=== PATIENT | male | born 1960 | race Hispanic/Latino ===

== ENCOUNTER 2017-04-19 11:39 | Inpatient (IN) | payer OTHER ==
[~2017-04-19 11:39] MED LIST: ISOVUE-370 76%-LOCM 1 ML ONE
[2017-04-19] MEDS ORDERED: Adacel (T-DAP) 0.5 ML VIAL ONE (11:52)
[2017-04-19 11:59] LABS: #Basophils 0.1 thou/uL (0.0-0.2); #Eosinphils 0.4 thou/uL (0.0-0.7); #Lymphocytes 3.7 thou/uL (1.20-3.40); #Monocytes 0.7 thou/uL (0.11-0.59); #Neutrophils 4.4 thou/uL (1.40-6.50); %Basophils 0.6 % (0.0-1.0); %Eosinophils 3.8 % (0.0-10.0); %Lymphocytes 40.2 % (21.0-51.0); %Monocytes 7.9 % (0.0-10.0); %Neutrophils 47.4 % (42.0-75.0); Hemoglobin 15.2 g/dL (14.0-18.0); Mean Corpuscular HGB CONC 34.9 g/dL (32.0-36.0); Mean Corpuscular Hemoglobin 31.9 pg (27.0-31.0); Mean Corpuscular Volume 91.2 fl (80.0-94.0); Mean Platelet Volume 8.5 fL (7.4-10.4); Platelet Count 171 thou/uL (130-400); RBC Distribution Width 12.6 % (11.5-14.5); Red Blood Cell (RBC) Count 4.76 mill/uL (4.70-6.10); White Blood Cell (WBC) Count 9.3 thou/uL (4.8-10.8)
[2017-04-19 12:09] LABS: Prothrombin Time 13.5 SEC (12.0-14.7)
[2017-04-19 12:15] LABS: ALT (SGPT) 42 U/L (8-55); AST (SGOT) 37 U/L (5-34); Alkaline Phosphatase 78 U/L (40-150); Anion Gap 14 mmol/L (10-20); BUN (Urea Nitrogen) 23 mg/dL (8.4-25.7); Bilirubin, Total 0.9 mg/dL (0.2-1.2); Calc. Creatinine Clearance 0 mL/min (70-130); Calcium 9.1 mg/dL (7.8-10.44); Carbon Dioxide 22 mmol/L (22-29); Chloride 107 mmol/L (98-107); Estimated GFR-MDRD 60; Globulin 2.8 g/dL (2.4-3.5); Glucose 165 mg/dL (70-105); Lipase 48 U/L (8-78); Potassium 3.7 mmol/L (3.5-5.1); Protein, Total 6.8 g/dL (6.0-8.3); Sodium 139 mmol/L (136-145)
--- NOTE | 2017-04-19 12:16 | CT ---
NONCONTRAST HEAD CT: Date: 04/19/17 HISTORY: Level I trauma. Slip and fall from back of concrete truck. Patient fell approximately 15-20 ft. Post- traumatic pain. Low back pain. Bilateral lower leg paralysis and loss of sensation. COMPARISON: None. TECHNIQUE: A noncontrast head CT is performed from the skull base to the skull vertex. FINDINGS: There is a probable arachnoid cyst in the left middle cranial fossa. No midline shift. Basilar cister ns are patent. Brain volume is age-appropriate. Cortical butler-white matter differentiation is preserv ed. Ventricles and sulci are patent and symmetric. Adequate aeration of the sinuses and mastoid air c ells. Calvarium is intact. IMPRESSION: No intracranial post-traumatic sequelae. POS: [facility]
--- NOTE | 2017-04-19 12:19 | CT ---
CERVICAL SPINE CT: Date: 04/19/17 COMPARISON: None. HISTORY: Fall, trauma, pain. TECHNIQUE: Serial axial CT imaging at 2.5 mm intervals from skull base through lung apices without contrast. Cor onal and sagittal reformatted imaging obtained. FINDINGS: The dens is intact. Occipital condyles appear grossly unremarkable. C1-2 articulation appears normal. There is no widening of the atlantoaxial interspace. The craniocervical junction and the cervicothora cic junction appears intact. There is no prevertebral soft tissue swelling. There is no acute fracture or evidence of dislocation seen. The imaged lung apices appear unremarkabl e. There are scattered mild osteoarthritic changes involving bilateral facet and uncovertebral joints . IMPRESSION: No fracture or evidence of dislocation. Results called to Dr. Mercer at 1209 hours on 04/19/17. CODE CR. POS: [facility]
[2017-04-19] MEDS ORDERED: Lidocaine 1% w/Epinephrine 1:100K 20 ML VIAL ONE (12:30)
[2017-04-19] MEDS ORDERED: Bupivacaine 0.5% 10 ML VIAL ONE (12:34)
[2017-04-19] MEDS ORDERED: Thrombin 5000 UNITS/5 ML VIAL ONE ×2 (12:34→17:23)
[2017-04-19] MEDS ORDERED: Sodium Chloride 0.9% 30 ML ONE (12:34)
[2017-04-19] MEDS ORDERED: Albumin 5% 500 ML ONE (12:40)
[2017-04-19] MEDS ORDERED: Famotidine/PF 20 mg/2ml Vial ONE (12:40)
[2017-04-19] MEDS ORDERED: PHENYLEPHRINE-NS 100 MCG/ML 10 ML SYRINGE ONE ×2 (12:44→14:26)
[2017-04-19] MEDS ORDERED: Phenylephrine HCL 10 MG/ML VIAL ONE ×2 (12:45→17:16)
[2017-04-19] MEDS ORDERED: HYDROcodone/Acetaminophen 10/325 mg Tablet PO PRN ×2 (12:51)
[2017-04-19] MEDS ORDERED: Ondansetron HCl/PF 4 MG/2 ML Vial IVP PRN ×2 (12:51→23:14)
[2017-04-19] MEDS ORDERED: Dextrose 50% Abboject 50 ML SYRINGE SLOW IVP PRN (12:51)
[2017-04-19] MEDS ORDERED: Dextrose 5% in Water 1,000 ML IV PRN (12:51)
[2017-04-19] MEDS ORDERED: hydrALAZINE 20 MG/ML VIAL SLOW IVP PRN (12:51)
[2017-04-19] MEDS ORDERED: CEFAZOLIN 2 GM in Sodium Chloride 0.9% 100 ML IVPB ONE (13:00)
[2017-04-19] MEDS ORDERED: CEFAZOLIN/Water 2 GM/20 ML SYRINGE SLOW IVP SCH (13:00)
[2017-04-19] MEDS ORDERED: Fentanyl 100 MCG/2 ML VIAL ONE ×5 (13:00→22:15)
--- NOTE | 2017-04-19 13:04 | CT ---
CT CHEST AND ABDOMEN AND PELVIS AND THORACIC SPINE AND LUMBAR SPINE: 04/19/2017 HISTORY: Fall. Trauma. Pain. Bilateral lower extremity paralysis and decreased rectal tone. COMPARISON: None. TECHNIQUE: Serial axial CT imaging at 5 mm intervals, from the thoracic inlet through the pubic symphysis, with IV contrast. Coronal and sagittal reformatted imaging of chest, abdomen, pelvis, thoracic spine, and lumbar spine obtained. FINDINGS: CHEST: No axillary, mediastinal, or hilar lymphadenopathy. No significant pleural, pericardial, or mediastinal fluid. No pneumothorax on either side. There is mild increased linear density in the inferior-posterior aspect of the bilateral lower lobes, suggesting atelectatic change. The extraspinal osseous structures of the chest demonstrate a comminuted and mildly displaced fractur e involving the inferior and lateral aspect of the body of the right scapula. Bilateral clavicles ap pear intact. No evidence for a scapular fracture is seen on the left, and neither shoulder is disloc ated. The manubrium and the sternum appear intact. No evidence for a rib fracture is noted on either side. THORACIC SPINE: There is a markedly comminuted fracture involving the T12 vertebral body, with fract ure lines involving the superior and inferior endplate, as well as the anterior and posterior cortex. There is osseous retropulsion into the central canal with severe associated central canal stenosis at the T12 level. The right pars interarticularis of T12 demonstrates a distracted fracture. Commin uted fractures are seen involving the transverse process of T12 bilaterally. There is a unilateral f acet dislocation on the left involving the T12-L1 level. There is adjacent paraspinal hematoma. There are fractures through the lamina of T12 bilaterally with posterior and right lateral displaceme nt of the T12 spinous process. LUMBAR SPINE: There is a comminuted fracture involving L1 with fracture lines involving the superior and inferior endplates, as well as the anterior and posterior cortex, with osseous retropulsion and associated underlying central canal stenosis. There is anteriorly displaced fracture involving the l eft L1 spinous process. Bilateral L1 lamina fractures are noted. There is a fracture involving the transverse process on the left, at L4. At the L3 level, there are fractures involving the right and left transverse processes. Bilateral transverse processes fracture s are noted at L2 as well. There is a subtle superior endplate fracture suspected at the L4 level, e xtending anteriorly, to involve the anterior cortex. ABDOMEN AND PELVIS: No free intraperitoneal air. No hepatic or splenic laceration noted. The gallbladder, the pancreas, and the left adrenal gland ar e unremarkable. The right adrenal gland and the left kidney demonstrate no acute findings. There is a punctate, nonobstructing stone in the midpole, left kidney. There is a lobulated, nonspecific, soft tissue density in the right renal fossa, measuring in the 3.9 x 1.8 cm range. No (?) normal right kidney is present. Perhaps this irregular, small soft tissue s tructure represents an atrophic kidney. A Maldonado catheter is seen within the urinary bladder. The pr ostate gland is prominent. Small bilateral fat-containing inguinal hernia is present. Limited asses sment of the bowel demonstrates diverticulosis of the descending colon and sigmoid colon. No evidenc e for bowel obstruction, bowel inflammatory change, or diverticulitis. Scattered mild atheroscleroti c calcification of the abdominal aorta. Osseous structures of the pelvis demonstrate no discrete sacral fracture. No widening of the sacroil iac joints or pubic symphysis. Neither hip is dislocated. No fracture of either inferior or superio r pubic ramus. IMPRESSION: 1. Complex, comminuted fracture involving T12 and L1 with osseous retropulsion and associated severe central canal stenosis. Please see above discussion for full extent of this instable severe, commin uted T12 and L1 fractures. There are also numerous transverse process fractures within the lumbar sp ine. 2. Right scapular fracture. 3. Incidental findings as above. The results were discussed with Dr. Mercer at 12:25 p.m. on 04/19/2017. CODE CR POS: [facility]
[2017-04-19] MEDS ORDERED: traMADol HCl 50 MG TAB PO PRN (13:09)
[2017-04-19] MEDS ORDERED: Acetaminophen 500 MG TAB PO SCH (13:15)
[2017-04-19 13:24] LABS: Magnesium 1.7 mg/dL (1.6-2.6); Phosphorus 3.2 mg/dL (2.3-4.7)
--- NOTE | 2017-04-19 14:13 | CON ---
DATE OF CONSULTATION: 04/19/2017 HISTORY OF PRESENT ILLNESS: Mr. Crum is a [id number] who presents after evaluation from a fall of 15-20 feet off a concrete truck. He leaned on his back. He has bilateral low back pain and paralysis loss of sensation to the lower extremities below the knee. He is unable to move his legs bilaterally. There was no loss of consciousness reported. EMS brought him to [facility] and he has looked back to posterior head. He has a history of diabetes , hypertension, hyperlipidemia, takes medications for them. The patient has a dull pain in nature. His symptoms are severe and rates pain 10/10. He has loss of temperature and pressure, and light touch below the knees bilaterally, but he can feel above the knees. Neurosurgery was consulted because of the CT scan that showed burst fractures at T12 and L1 that are retropulsed into the spinal canal impinging the spinal cord. REVIEW OF SYSTEMS: The patient reports back pain, reports a fall, reports paralysis, sensory changes to the lower extremities. All other review of systems is negative unless stated in the above HPI. ALLERGIES: No known drug allergies. CURRENT MEDICATIONS: No recorded medications. PHYSICAL EXAMINATION: VITAL SIGNS: Blood pressure 160/74, pulse 72, respirations 28, O2 sats 97% on 2 L. GENERAL: This patient is alert and oriented x4. He is able to move his upper extremities bilaterally. HEENT: Has a spot in the posterior skull, a small laceration, normocephalic. Hearing intact. Eyes: Pupils are equal and reactive to light. Extraocular muscles are intact. Sclerae is white, nonicteric. NECK: The patient's range of motion is limited by cervical collar of the neck. Trachea is midline. There is no tenderness. RESPIRATORY: The patient has bilateral symmetric chest rise. Appears to be in no shortness of breath. CARDIOVASCULAR: The patient has regular rate and rhythm, normal S1, S2 heart sounds. Have distal cyanosis or clubbing noted. NEUROLOGIC: The patient cranial nerves II through XII are grossly intact. Speech is fluent. He answers questions appropriately. [place] coma scale 15. He has normal speech. He speaks Icelandic. He has decreased rectal tone on examination. Tenderness to midline thoracic and upper lumbar spine. He has no sensation from the midthigh down bilaterally. He is unable to move either leg. There is no obvious deformity. IMPRESSION: Mr. Crum is a 57-year-old male status post fall and T12-L1 burst fracture. PLAN: We will take Mr. Crum to the OR to do an open reduction internal fixation of the thoracolumbar spine to stabilize the spine. I will order Ancef 2 grams, surgical site infection prophylaxis and check INR status. If there are any further questions, please feel free to contact Neurosurgery. JEANETTE
[2017-04-19] MEDS ORDERED: Propofol 200 MG/20 ML VIAL ONE (14:26)
[2017-04-19] MEDS ORDERED: Sterile Water 10 ML VIAL ONE (14:26)
[2017-04-19] MEDS ORDERED: Glycopyrrolate 0.2 MG/ML 5 ML SYRINGE ONE (14:26)
[2017-04-19] MEDS ORDERED: CEFAZOLIN 1 GM VIAL ONE ×2 (14:26→17:55)
[2017-04-19] MEDS ORDERED: Ondansetron HCl/PF 4 MG/2 ML Vial ONE (14:26)
[2017-04-19] MEDS ORDERED: PROVENTIL INHALER 6.7 G (200 INHALATIONS) ONE (14:26)
[2017-04-19] MEDS ORDERED: Lidocaine 1% PF 5 ML VIAL ONE ×2 (14:26)
[2017-04-19] MEDS ORDERED: Succinylcholine Chloride 20 MG/ML 10 ml SYRINGE FS ONE (14:26)
[2017-04-19] MEDS ORDERED: Metoclopramide HCl 10 MG/2 ML VIAL ONE (14:26)
--- NOTE | 2017-04-19 15:41 | PRG ---
DATE OF SERVICE: 04/19/2017 I personally interviewed and examined the patient and reviewed images and agree with documentation of Jorge Jennings PA-C, dated 04/19/2017. Briefly, Félix Crum had a 20 feet fall, landing on his feet, intermediate onset back pain and pa ralysis in the legs. He was brought to our emergency department where CT examination of the thoracol umbar spine reveal burst fractures of T12 and L1 with posterior element fractures at those sites as w ell. There is kyphotic deformity in angulation with some bone in the anterior aspect of the canal an d broken lamina posteriorly. There is no significant soft tissue density in the canal or bony densit y in the canal lower than that or higher than that. Mr. Crum was examined and has no motor function from the waist down. He has patchy sensation prese rvation mostly in the anterior thighs, not much in the posterior thighs, anterior shins, posterior ca lf or feet. He has decreased rectal tone and poor rectal sensation, poor saddle sensation. Mr. Crum suffered a burst fracture with a motor complete spinal cord injury with some sensory prese rvation. I think the likelihood of regaining ambulatory status is low, but we will take him to the o perating room emergently from the emergency department. We will decompress and fuse thoracolumbar sp ine, using at least 2 segments above the last fractured segment and two segments below the last fract ured segment. We use bracing and slow mobilization to begin his rehab process. We will try to reduc e fracture fragments as much as possible with positioning ligamentotaxis and bone tamps. INFORMED CONSENT: I discussed indications, risks, benefits, alternatives, and expected outcomes from surgery. The risks discussion centered around the fact that operative risks are inherent for any op eration and that this surgery is the only chance that I can see for return of neurological function. The surgery could worsen him result in significant bleeding or be life threatening. He understands this and wishes to proceed.
[2017-04-19] MEDS ORDERED: Albuterol Sulfate HFA (OR ONLY) ONE (16:06)
--- NOTE | 2017-04-19 16:09 | HP ---
Note, this is a level 1 trauma activation. REQUESTING PHYSICIAN: Dr. Bentley. ADMITTING PHYSICIAN: Dr. Schwab. CONSULTING PHYSICIAN: Dr. Farmer. DATE OF ADMISSION: 04/19/2017 CHIEF COMPLAINT: Evaluation of back pain and lower extremity paralysis status post fall. HISTORY OF PRESENT ILLNESS: The patient reportedly fell approximately 20 feet onto his back off of a concrete truck. The patient complains of lower back pain and bilateral lower leg paralysis and loss of sensation. There was no reported loss of consciousness, although he did report hitting the back of his head. The patient describes his pain as located in his lower back, 10/10. There is no other pain reported. The patient was brought to the [place] ED by EMS where level 1 trauma activation w as initiated. Once the patient arrived in the ED 2 peripheral IV lines were established. The patient was maintaine d and C-spine immobilization and placed on a laboratory monitor. Labs were ordered and the patient was transported to CT scanner for imaging. Jorge ALBERT and Neurosurgery was consulted when results of CT abdomen and pelvis revealed a T12-L1 fractures with involvement of the spinal canal. The patient also suffered a laceration at back of his head, which was closed with four sugey in the ED. PAST MEDICAL HISTORY: Diabetes, hypertension, hyperlipidemia. PAST SURGICAL HISTORY: The patient reports no known drug allergies. SOCIAL HISTORY: The patient does not smoke or drink alcohol. PAST SURGICAL HISTORY: Negative. FAMILY HISTORY: Noncontributory. OBJECTIVE: VITAL SIGNS: BP 122/70, pulse 80, respirations 21, O2 sat 94% on 4 liters nasal cannula. GENERAL APPEARANCE: The patient is a middle-aged adult male, Slovak speaking, who is maint ained in a cervical spine collar and appears to be in moderate amount of distress. HEENT: Includes findings of a 3 cm laceration to the left occiput. He is otherwise normocephalic. Eyes, the patient's pupils are equal, round, and reactive to light and accommodation. His extraocula r muscles are intact. Ears, his external auditory canals are atraumatic. Nose, his nares are patent . There is no blood or discharge. NECK: Includes findings of being in a cervical collar. His trachea is midline. RESPIRATORY: His breath sounds are clear to auscultation bilaterally with normal effort. CARDIOVASCULAR: He has a regular rate and rhythm with normal S1 and S2. ABDOMEN: Soft, obese, but nontender. His bowel sounds are normal. GENITOURINARY: The patient has a Maldonado catheter in place. The rectal exam was performed, significan t for decreased rectal tone. BACK: He has tenderness to the lower thoracic and upper lumbar spine. There is no soft tissue abnor malities appreciated. EXTREMITIES: His fine motor skills and sensation are intact bilaterally in the upper extremities. L ower extremities: He has absent sensation from the mid-thigh down. He has absent motor function as well. NEUROLOGIC: The patient's [place] coma scale is 15. He is alert and oriented x4. His cranial nerve s II-XII are intact. His only neurologic deficits are in his lower extremities as mentioned above. SKIN: Warm, dry, and intact with the exception of his head as mentioned above. His cap refill is le ss than 2 seconds. LABORATORY DATA: WBC is 9.3, hemoglobin 15.2, hematocrit 43.5, platelets 171. His coag panel: PT 1 3.5, INR 1.0, PTT 21.0. Chemistry: Sodium 139, potassium 3.7, chloride 107, bicarbonate 22, BUN 23, creatinine 1.24, estimated GFR 60, glucose 165, AST 37. Other liver panel. Rest of his liver panel is normal. RADIOGRAPHIC FINDINGS: Brain CT. Impression: No intracranial posttraumatic sequel and cervical spi ne CT. Impression: No fracture evidence of dislocation. CT of the chest, abdomen, and pelvis signi ficant for: 1. Complex comminuted fracture involving T12 and L1 with osseous retropulsion and associated severe central canal stenosis. There are also numerous transverse process fractures within the lumbar spine . 2. Right scapular fracture. 3. Incidental findings. There is a lobulated nonspecific soft tissue density in the right renal fos sa. There is no normal right kidney present. ASSESSMENT AND PLAN: 1. T12-L1 fractures with severe central canal stenosis. 2. Head laceration, closed in ER. 3. Acute traumatic pain. 4. Status post fall from height. PLAN: 1. The patient after consultation with Neurosurgery is to go to the OR directly from the emergency r oom. He is schedule to undergo four level fixation of T12 and L1. The patient will be made n.p.o. i mmediately. His last meal was at 7:00 this morning. 2. The patient will be given adequate pain control and other supportive care measures as needed. On ce transferred back to the surgical floor gastritis prophylaxis and pulmonary toileting will be imple mented. 3. Serial neuro examinations q.1 hour. 4. The patient will be on strict spinal precautions continuously. The patient will also be placed o n strict bed rest, pending Neurosurgery postop consultation. This patient was seen and examined along with Dr. Schwab, who agrees with the assessment and plan.
[2017-04-19] MEDS ORDERED: Nitroglycerin 50 MG/250 ML BOT 250 ML ONE (16:21)
[2017-04-19] MEDS ORDERED: Ketorolac Tromethamine 30 MG/ML VIAL IVP SCH ×2 (18:00)
[2017-04-19 18:49] LABS: #Eosinphils 0.1 thou/uL (0.0-0.7); #Lymphocytes 0.7 thou/uL (1.20-3.40); #Monocytes 0.5 thou/uL (0.11-0.59); #Neutrophils 7.2 thou/uL (1.40-6.50); %Basophils 0.2 % (0.0-1.0); %Eosinophils 0.6 % (0.0-10.0); %Lymphocytes 8.5 % (21.0-51.0); %Monocytes 5.3 % (0.0-10.0); %Neutrophils 85.4 % (42.0-75.0); Hemoglobin 11.8 g/dL (14.0-18.0); Mean Corpuscular HGB CONC 34.2 g/dL (32.0-36.0); Mean Corpuscular Volume 90.7 fl (80.0-94.0); Mean Platelet Volume 8.5 fL (7.4-10.4); Platelet Count 121 thou/uL (130-400); RBC Distribution Width 12.9 % (11.5-14.5); Red Blood Cell (RBC) Count 3.81 mill/uL (4.70-6.10); White Blood Cell (WBC) Count 8.4 thou/uL (4.8-10.8)
[2017-04-19] MEDS ORDERED: Insulin Regular 300 UNITS/3 ML VIAL ONE (18:51)
[2017-04-19] MEDS ORDERED: HYDROmorphone 0.5 MG/0.5 ML SYRINGE ONE (20:03)
--- NOTE | 2017-04-19 20:50 | HP ---
DATE OF VISIT: 04/19/2017 CHIEF COMPLAINT: Fall from approximately 20 feet with spine fracture and lower extremity paralysis. HISTORY OF PRESENT ILLNESS: This patient is a 57-year-old male. He presented to the emerge ncy room following his fall from height. He was hemodynamically stable upon arrival, but noted to be insensate in his bilateral lower extremities and was unable to move his feet. He underwent thorough evaluation, guided initially by Dr. Bentley. I performed a full history and physical examination o n this patient. This is dictated by a BETY Leary. ASSESSMENT AND PLAN: Again as dictated per Mr. Bassett. The patient has been seen emergently by Neur osurgery with plan for urgent operative stabilization. The patient will be admitted to the [facility] for further care in conjunction with Neurosurgery.
[2017-04-19] MEDS ORDERED: CEFAZOLIN 1 GM, Syringe 2.5 ML in Sterile Water 7.5 ML SLOW IVP SCH (22:00)
[2017-04-19] MEDS: Sodium Chloride 0.9% 1,000 ML IV SCH ×2 (22:54→22:55)
[2017-04-19] MEDS: traMADol HCl 50 MG TAB PO SCH ×2 (22:55→22:56)
[2017-04-19] MEDS: Famotidine/PF 20 mg/2ml Vial SLOW IVP SCH (22:56)
[2017-04-19] MEDS: Insulin Regular 300 UNITS/3 ML VIAL SC PRN (22:58)
[2017-04-19] MEDS: Acetaminophen 1,000 MG in Premix Bag 1 BAG IVPB SCH (22:59)
[2017-04-19] MEDS ORDERED: Promethazine HCl 25 MG/ML VIAL SLOW IVP PRN (23:14)
[2017-04-19] MEDS ORDERED: Meperidine HCl/PF 25 MG/ML VIAL SLOW IVP PRN (23:14)
[2017-04-19] MEDS ORDERED: Ketorolac Tromethamine 30 MG/ML VIAL IVP PRN (23:14)
[2017-04-19] MEDS ORDERED: Promethazine HCl 25 MG/ML VIAL IM PRN (23:14)
--- NOTE | 2017-04-19 23:32 | OP ---
DATE OF SURGERY: 04/19/2017 SURGEON: Marisa Farmer M.D. BUSINESS BANKING REPRESENTATIVE: Jorge Jennings PA-C. PREOPERATIVE INDICATION: For a small chance of neurological recovery, attempt to prevent permanent p aralysis. PREOPERATIVE DIAGNOSES: Three column fracture dislocation at the T12 and L1 with a near complete spi nal cord injury (sensory function to L3, but no motor function from T12 down.) POSTOPERATIVE DIAGNOSES: Three column fracture dislocation at the T12 and L1 with a near complete sp inal cord injury (sensory function to L3, but no motor function from T12 down.) OPERATIVE PROCEDURE: Decompressive laminectomy T11-12, T12-L1, L1-L2, microsurgical resection of mul tiple fracture induced durotomies open reduction and internal fixation of T12 fracture, open reductio n internal fixation of L1 fracture, pedicle screw and airam instrumentation T10-L3, posterolateral arth rodesis T10-L3, local morselized autograft, morselized allograft, and operating microscope. PREOPERATIVE MEDICATIONS: Ancef 2 grams IV. DRAIN NUMBER: One. DRAIN TYPE: 10 Romansh Christian under no suction. OPERATIVE DICTATION: The patient was brought to the operating room emergently from the ED. General endotracheal anesthesia was induced. The patient was carefully log rolled onto the Wallace frame wit h appropriate padding for the chest and hips. Wallace frame itself realigned T12 and L1 and reduce t he kyphosis of the fractures nicely. A lateral fluoro radiograph was used to plan our incision. The thoracolumbar skin was sterilely prepped and draped. We opened with a 10 blade knife and controlled bleeding with bipolar and monopolar cautery. We used monopolar cautery to dissect through the subcu taneous tissues to the thoracodorsal fascia. We incised the fascia in the midline and reflected the paraspinal muscles off the spinous process and lamina of T10. At the bottom of T9, T10, T11, T12, L1 , L2, and the top of L3, self-retaining retractors were placed. A lateral fluoro radiograph confirme d the levels upon which we were operating. We brought the operating microscope into the field. Under microscopic magnification using microsurgical techniques, we carefully removed loose fracture f ragments including most of the posterior elements of T12 entire lamina of L1 removed the inferior por tion of the lamina of T11 and superior portion of the lamina of L2 to decompress as well. There was a large durotomy on the left side of the canal at T12. There was a smaller durotomy in the ventral r ight side of the canal T12. There is a 2 cm durotomy on the right side of the canal at L1. Using mi crosurgical techniques, we closed the durotomy on the right side at L1 with interrupted 6-0 Prolene s utures. The other two durotomies continued ventrally and could not be closed or reapproximated. Ove r these, we left a Duragen dural onlay substitute then turned our attention to arthrodesis. Operativ e microscope was taken out of the field. Using bony anatomic landmarks and a lateral fluoro radiograph as our guide, we chose entry points for pedicle screws at T10, T11, L2, and L3. We drilled corporation pilot holes and then advanced gear shift shaped bone all through the pedicles into the vertebral bodies at T10, T11, L3 and L2. We tapped our trajec tories. We probed them with a ball probe and found them completely encased in bone. We placed 6.5 m m diameter screws at T10, T11, L2, and L3. We attempted to engage the anterior cortex of the placeme nt of each of the screws for bicortical purchase. We shaped rods to engage the screw heads. Lower t he rods into the field and tightened caps down over the rods using zjoikp-[id number]-yjwkfk mechanism to ensure adequate tightness. We irrigated copiously with bacitracin irrigation. We decorticated the lamina of T10 and T11, the remaining posterior elements of T12 and L1, the transverse process of L2 a nd L3 and the lamina of L2 and L3 and over all the decorticated bone, we left demineralized bone matr ix and morselized autograft as our posterolateral fusion substrate. The autograft was obtained from our decompression and all of that bone was cleaned of soft tissue attachments, morselized and added t o DBM as our fusion substrate. We tunneled a drain superiorly through a separate stab incision and l eft it under no suction, simply to collecting redirect CSF where it to accumulate posteriorly, the dr perez was sewn and as we dissipate leaving that for a number of days, perhaps 2 weeks. Finally, we bedolla d a larger piece of Duragen over the entire defect and our decompression, we used DuraSeal over that there is another sealant maneuver and then we closed and we applied vancomycin powder in the wound. We closed the wound in anatomic layers over the drain and a sterile dressing was applied. This was c lean case and no contamination.
[2017-04-20] MEDS: traMADol HCl 50 MG TAB PO SCH ×5 (01:27→22:01)
[2017-04-20] MEDS: Insulin Regular 300 UNITS/3 ML VIAL SC PRN ×3 (04:24→16:57)
[2017-04-20] MEDS: Acetaminophen 1,000 MG in Premix Bag 1 BAG IVPB SCH (04:24)
[2017-04-20 04:31] LABS: #Lymphocytes 1.2 thou/uL (1.20-3.40); #Monocytes 0.5 thou/uL (0.11-0.59); #Neutrophils 5.2 thou/uL (1.40-6.50); %Eosinophils 0.2 % (0.0-10.0); %Lymphocytes 17.6 % (21.0-51.0); %Monocytes 7.3 % (0.0-10.0); %Neutrophils 74.9 % (42.0-75.0); Hemoglobin 11.6 g/dL (14.0-18.0); Mean Corpuscular HGB CONC 34.2 g/dL (32.0-36.0); Mean Corpuscular Hemoglobin 30.4 pg (27.0-31.0); Mean Platelet Volume 9.5 fL (7.4-10.4); Platelet Count 103 thou/uL (130-400); RBC Distribution Width 14.8 % (11.5-14.5); Red Blood Cell (RBC) Count 3.82 mill/uL (4.70-6.10); White Blood Cell (WBC) Count 6.9 thou/uL (4.8-10.8)
[2017-04-20 04:37] LABS: Anion Gap 11 mmol/L (10-20); BUN (Urea Nitrogen) 20 mg/dL (8.4-25.7); Calc. Creatinine Clearance 90 mL/min (70-130); Calcium 8.1 mg/dL (7.8-10.44); Carbon Dioxide 26 mmol/L (22-29); Chloride 108 mmol/L (98-107); Estimated GFR-MDRD 69; Glucose 172 mg/dL (70-105); Magnesium 1.6 mg/dL (1.6-2.6); Potassium 3.8 mmol/L (3.5-5.1); Sodium 141 mmol/L (136-145)
[2017-04-20] MEDS: Sodium Chloride 0.9% 1,000 ML IV SCH (04:45)
--- NOTE | 2017-04-20 07:36 | PRG ---
DATE OF SERVICE: 04/20/2017 HISTORY: Mr. Crum is a 57-year-old male who is status post 1 day from a thoracolumbar fusion for l ower extremity paralysis after a fall off of the top of a cement truck. He has been in the ICU [facility]n [facility] and his vital signs have been stable. Overnight, there has been 70 mL put out from the drain. There is no suction to the drain. This morning, his labs show hemoglobin of 11.6, hematocrit 34. He seems to be doing well on exam this morning. He is unable to move his left and right leg. He has s ome internal rotation of the left leg at the hip. He still admits to sensory deficits in the lower e xtremities bilaterally, especially below the knees. He can feel pressure bilaterally in the lower ex tremities. However, he is unable to move them against gravity. [facility] he had a dural repair during the surgery, because of the punctures of the comminuted burst fra cture into the dura. Otherwise, he has been stable overnight and can be transferred to the 3rd floor today. There are no new neurologic deficits on exam this morning. If there are any further questio ns, please feel free to contact Neurosurgery.
--- NOTE | 2017-04-20 07:41 | PRG ---
DATE OF SERVICE: 04/19/2017 SUBJECTIVE: The patient is postop day zero from multilevel fusion and decompression of thoracic and lumbar fracture. Right now at this time , the patient does report significant pain to his back. He is being currently medicated; otherwise, no further movement below the knee at this time. Vital signs have been stable in PACU, but the patient did receive 2 units of packed cells as well as one d ose of albumin per Anesthesia. Physical exam is unchanged, otherwise noted in the History and Physical. ASSESSMENT AND PLAN: Continue monitored care. We will transfer the patient to CCU just from postope rative observation due to the severity of the injury and the length of the surgery at 6 hours as well as any other hemodynamic instability to be monitored closely. The patient's case has been discussed with Neurosurgery as well as Dr. Penny who agrees with the above plan
[2017-04-20] MEDS: Famotidine/PF 20 mg/2ml Vial SLOW IVP SCH (08:56)
[2017-04-20] MEDS ORDERED: FLU VACC QS2017-18 36 mo. & older 0.5 ML SYRINGE IM ONE (09:00)
--- NOTE | 2017-04-20 10:14 | PRG ---
DATE OF SERVICE: 04/20/2017 NEUROSURGERY PROGRESS NOTE SUBJECTIVE: I saw Mr. Crum this morning in the ICU. His surgery was long and arduous yesterday. The fracture that he suffered resulted in opening of the posterior elements. At L1, a fracture line had opened in the superior lateral portion of the lamina on the right side and the fracture fragments were trapping nerves that had extruded through the dura, multiple nerves were out on the left sided durotomy and at the T12 right side durotomy as well. This resulted in the weakness and numbness that he had in his lower extremities along with the spinal cord contusion, undoubtedly. Overnight, the vitals have been relatively stable. He has been flat in bed. I see more motor functi on than I did yesterday. When I asked him to move his legs, he can internally rotate the left hip wi th gravity I removed. He fires the hip flexors and quads on the left and I could see the contraction there is some motion, but there is no antigravity strength. On the right, there is contraction of t he hip flexors and quads that is weaker than the left. It does not result in motion, but it is visib le. He has sensation in the L3, L2 and L1 dermatomes, and L4, L5, and S1, no sensation. My plan for Mr. Crum is to slowly raise him to sitting. He is to have clamshell external orthosis for added stability. We are going to leave the drain in, which we tunneled from the superior portion of the incision under the paraspinal muscles. The drain should be emptied every 2 hours. We are go ing to leave it in place, perhaps up to 2 weeks. If any CSF starts to accumulate, the drain ought to control it and allow for muscle healing, fascial healing and skin healing before the drain is remove d. There are simply no edges of dura to close, so we will have to depend on this system. We should start some aggressive physical therapy and look for inpatient rehabilitation. All attempts should be made return him to ambulatory status, although the chance of that is low, we should at betsy try to move in that direction. I communicated my a lack of optimism to the family yesterday, but they look forward to trying to help him with this therapy to get stronger.
[2017-04-20] MEDS: Acetaminophen 500 MG TAB PO SCH ×3 (12:23→22:00)
--- NOTE | 2017-04-20 12:43 | PRG ---
DATE OF SERVICE: 04/20/2017 SUBJECTIVE: Mr. Crum is a 57-year-old man who fell off of a truck yesterday, landing appr oximately 20 feet on his back. The patient sustained complex burst fractures of T12 and L1. This wa s complicated by partial paraplegia. The patient was evaluated and underwent an uneventful neurosurg ical operative intervention yesterday. Currently, he is awake and alert. His [place] coma scale is 15. He reports adequate pain control. He is unable to move his lower extremities. Sensation is pre served approximately 6 cm below both knees. He has remained hemodynamically stable and afebrile. He denies any nausea or emesis. OBJECTIVE: VITAL SIGNS: Includes blood pressure 120/76, pulse 81, respiratory rate 17. Maximum temperature in the last 24 hours is 98.2 degrees Fahrenheit, oxygen saturation currently is 94% on 2 liters by nasal cannula oxygen. HEENT: Reveals normocephalic and atraumatic. HEART: Reveals regular rate and rhythm, no murmurs or gallops auscultated. CHEST: Lungs clear to auscultation bilaterally. Breathing is regular and unlabored. ABDOMEN: Soft, nontender and nondistended. EXTREMITIES: There is 2+ radial and pedal pulses bilaterally. MUSCULOSKELETAL: Reveals 5/5 muscle strength in bilateral upper extremities. Muscle strength is 2/5 in both lower extremities. NEUROLOGIC: Otherwise, [place] coma scale is 15. LABORATORY DATA: Includes a CBC with 6900 white blood cells, hemoglobin and hematocrit are stable at 11.6 and 34.0 respectively. Platelet count 103,000. Metabolic profile: Sodium 141, potassium is 3 .8, chloride is 108, bicarbonate 26, BUN 20, creatinine is 1.10, glucose 172, magnesium 1.6, and phos phorus is 4.0. IMPRESSION: 1. T12 and L1 burst fractures with paraplegia. 2. Postoperative day #1 status post decompressive laminectomy, T11-T12, T12-L1, L1-L2. The patient is hemodynamically stable. PLAN: 1. Initiate physical and occupational therapy once TLSO brace has been fitted. 2. Patient will be transferred to general surgical floor where we will continue with physical and oc cupational therapy. 3. We will ask PM and R to evaluate the patient for possible inpatient rehabilitation. 4. We will discuss with Neurosurgery with regards to timing for initiation of chemical VTE prophylax is. 5. In the interim, we will continue mechanical VTE prophylaxis.
--- NOTE | 2017-04-20 15:56 | CON ---
DATE OF CONSULTATION: 04/20/2017 REASON FOR CONSULTATION: PM and R evaluation. HISTORY OF PRESENT ILLNESS: This is a 57-year-old male who was admitted to [facility] on 04/19/2017 after a fall. Patient apparently was working on top of a concrete truck when a dill knocked him to the ground. He fell approximately 20 feet. There are no reported loss of cons ciousness at the scene; however, he could not move his legs. EMS was called and he was brought to ergency room, underwent comprehensive evaluation. He underwent a brain CT that showed no intracrania l problems. He did have a CT of the thoracic and lumbar spine, did show a complex comminuted fractur e involving T12 and L1 with osseous retropulsion and severe central canal stenosis. He also had a ri ght scapular fracture as well. A head laceration that was closed as well. Neurosurgery was consulte d and patient was seen by Dr. Farmer. The patient was diagnosed with a 3-column fracture dislocat ion T12 and L1. The patient underwent decompressive laminectomy T11-12, T12-L1, L1-2 with fusion wit hout complications. Postoperatively, the patient has done well. Vital signs have been stable. He h as had some orthostatic hypotension. Most recent labs on 04/20/2017, WBCs were 6.9, hemoglobin 11.6, hematocrit 34, platelets were 103. He does have a history of diabetes and is on sliding scale insul in. He is also on p.r.n. pain medications as well. PAST MEDICAL HISTORY: History of type 2 diabetes mellitus, hypertension, hyperlipidemia. PAST SURGICAL HISTORY: He does not report any surgical history. ALLERGIES: He has no known drug allergies. SOCIAL HISTORY: Patient lives with his in a single story home with no steps. He denies any his tory of alcohol or tobacco or drug use. 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 FAMILY HISTORY: He is only diabetic. His family does have a brother who had a stroke. He does not remember his parental medical history. PHYSICAL EXAMINATION: GENERAL: He was alert. He was sitting up in bed. VITAL SIGNS: Temperature is 99.0, pulse was 75, respirations were 19, blood pressure 115/70. HEENT: His face was grossly symmetric. Pupils intact. Speech was grossly fluent, but mostly in [place]. NECK: Supple. HEART: Regular. LUNGS: Clear. ABDOMEN: Soft, nontender. EXTREMITIES: He was in a TLSO brace that did not roll him on his back to examine his back. He had g rossly normal range of motion, strength, and sensation in bilateral upper extremities. In bilateral lower extremities, there was no motor in the quadriceps, hamstrings, anterior tip, posterior tip, gas trocnemius or toe extensors and flexors bilaterally. He does have sensation down to the knee area th at is patchy. He does have some 1/5 left hip flexor motor. Distally, there was no pretibial edema. His calves were supple and nontender. DIAGNOSES: T12 incomplete spinal cord injury status post complex comminuted fracture T12-L1 with oss eous retropulsion and severe spinal stenosis status post decompression. ACTIVE COMORBID PROBLEMS: Include diabetes mellitus, thrombocytopenia. PLAN: I did talk about prognosis with the family. At this point, the patient does have an incomplet e injury. I did discuss ongoing rehabilitation care, which I am recommending once he is out of acute care hospital, we would recommend inpatient rehabilitation stay for approximately 1-2 weeks. Contin ue to address mobility, strength, endurance, fall prevention, treatment of possible neurogenic bowel, neurogenic bladder as well as patient and family training as well. I talked to the nurses about ort hostatic hypotension, we would recommend at this point JANICE hose bilaterally and would recommend britton nue SCDs while in bed and Lovenox when cleared by Neurosurgery and depending on his platelet count. This plan was discussed with the family who agree.
[2017-04-20] MEDS: Famotidine 20 MG TAB PO SCH (22:01)
[2017-04-21] MEDS: traMADol HCl 50 MG TAB PO SCH ×4 (03:24→21:20)
[2017-04-21 04:17] LABS: #Lymphocytes 1.1 thou/uL (1.20-3.40); #Monocytes 0.5 thou/uL (0.11-0.59); %Basophils 0.2 % (0.0-1.0); %Eosinophils 0.4 % (0.0-10.0); %Lymphocytes 17.1 % (21.0-51.0); %Neutrophils 75.2 % (42.0-75.0); Hemoglobin 11.2 g/dL (14.0-18.0); Mean Corpuscular HGB CONC 34.4 g/dL (32.0-36.0); Mean Corpuscular Hemoglobin 30.8 pg (27.0-31.0); Mean Corpuscular Volume 89.4 fl (80.0-94.0); Mean Platelet Volume 9.3 fL (7.4-10.4); Platelet Count 72 thou/uL (130-400); RBC Distribution Width 14.7 % (11.5-14.5); Red Blood Cell (RBC) Count 3.63 mill/uL (4.70-6.10); White Blood Cell (WBC) Count 6.6 thou/uL (4.8-10.8)
[2017-04-21] MEDS: Acetaminophen 500 MG TAB PO SCH ×4 (05:26→22:01)
--- NOTE | 2017-04-21 06:58 | PRG ---
DATE OF SERVICE: 04/20/2017 SUBJECTIVE: He is postop day 1 from decompression laminectomy with posterior fusion from T10-L3. No acute complaints at this time. The patient is doing well. OBJECTIVE: Vital signs have been stable. Physical exam is unchanged, otherwise stated in daily prog ress note. ASSESSMENT AND PLAN: Continue to monitor. Continue PT and OT. Rehab pending. Discharge dispositio n is pending. Neurosurgery, continue to follow.
[2017-04-21] MEDS: Insulin Regular 300 UNITS/3 ML VIAL SC PRN ×4 (07:42→21:21)
[2017-04-21] MEDS: Famotidine 20 MG TAB PO SCH ×2 (08:37→21:21)
--- NOTE | 2017-04-21 11:13 | PRG ---
DATE OF SERVICE: 04/21/2017 HISTORY: Mr. Crum is a 57-year-old male who is status post 2 days from a thoracic and lumbar fusio n and decompression for spinal cord injury. He is unable to move his lower extremities. He is able to internally rotate the left leg at the hip. He has loss of sensation in the lower extremities and continues to have paresthesias today. Above the knee, he is able to feel pressure and the majority o f his legs; however, there is some muscle activation. Overnight, his vital signs have been stable and there have been no acute events. DEANNA drain has put ou t 10 mL in the past 12 hours. His hemoglobin this morning is 11.2, his hematocrit is 32.4. Patient will need physical therapy and inpatient rehabilitation in an attempt to return him to ambulatory sta tus; however, that chance is very low. He seems to be in good spirits this morning and was sitting u p in no acute distress, eating his breakfast. If there are any further questions, please feel free t o contact Neurosurgery. He should have a venogram before he leaves the hospital since he is unable t o move his lower extremities and ambulate. If there are any further questions, please contact me.
--- NOTE | 2017-04-21 11:27 | PRG ---
DATE OF SERVICE: 04/21/2017 SUBJECTIVE: Mr. Crum is 2 days out from decompression, open reduction and internal fixation, and i nstrumented arthrodesis for unstable fracture dislocation T12 and L1. He had suffered spinal cord in jury as well. Mr. Crum is seen this morning in his hospital room. His TLSO brace is in place. He is sitting up and watching soccer on the television. He does have 2/5 strength in the hip flexors and in the quadr iceps on the left, 1+/5 strength in the hip flexors and quadriceps on the right and then I can see mu scle contraction, but no motion. He has no motor contraction below those levels with the possible ex ception of very weak 1 cm dorsiflexion of the right ankle. Sensation is preserved in L3, sensation b elow L3 is not checked. Mr. Crum's neurological examination is stable. He has his brace on. When he is lying flat in bed, he can have his brace off or to begin mobilization with physical therapy.
--- NOTE | 2017-04-21 13:01 | PRG ---
DATE OF SERVICE: 04/21/2017 SUBJECTIVE: Mr. Crum is a 57-year-old man who is postoperative day #2, status post L4 level spinal fusion following T12 and L1 burst fractures. He reports adequate pain control today. He remains fu nctionally paraplegic. Otherwise, [place] coma scale is 15. OBJECTIVE: VITAL SIGNS: Today includes blood pressure 135/79, pulse is 81, respiratory rate is 18, maximum temp erature in the last 24 hours is 98.8 degrees Fahrenheit, oxygen saturation is 95% on 3 liters by nasa l cannula oxygen. HEART: Reveals regular rate and rhythm. No murmurs or gallops auscultated. ABDOMEN: Soft, nontender and nondistended. NEUROLOGIC: Examination reveals no focal deficits present. LABORATORY DATA: Laboratory findings today includes CBC with 6,600 white blood cells, hemoglobin 11. 2, hematocrit is 32.4, platelet count is 72,000. IMPRESSION: 1. Postoperative day #2, status post fall, level spinal fusion. 2. T12 and L1 burst fractures with functional paraplegia. PLAN: Continue with physical and occupational therapy and increase activities as tolerated. The patient has been evaluated by PMNR in anticipation for inpatient rehabilitation. The patient is a high risk for VTE and therefore we will ask Cardiovascular Surgery to evaluate the patient for IVC filter placement.
--- NOTE | 2017-04-21 13:23 | CON ---
DATE OF CONSULTATION: 04/21/2017 HISTORY OF PRESENT ILLNESS: Mr. Heard is a 57-year-old gentleman, who was admitted on 04/19/2017 after a fall. He fell from approximately 20 feet. He had severe spinal fracture with incomplete cor e transection. He has undergone operative repair. They have been unable to anticoagulate him. I bashir ve been asked to see him for an inferior vena cava filter placement for prophylaxis against pulmonary embolus. PAST MEDICAL HISTORY: 1. Type 2 diabetes mellitus. 2. Hypertension. 3. Hyperlipidemia. PAST SURGICAL HISTORY: Spinal surgery. SOCIAL HISTORY: He lives at home with his . He does not use alcohol or tobacco. REVIEW OF SYSTEMS: Not performed due to the patient's Pashto only status. PHYSICAL EXAMINATION: GENERAL: He is a well-developed, well-nourished man sitting upright in bed with a TLSO brace on. VITAL SIGNS: Height 5 feet 4 inches, weight 192 pounds. Temperature is 98.7, pulse 76 and regular, blood pressure is 129/77. LUNGS: Clear bilaterally. HEART: Rhythm is regular without murmur. ABDOMEN: Soft and nontender. EXTREMITIES: There is no edema. ASSESSMENT AND PLAN: For inferior vena cava filter placement. We will place a removable filter in t he hopes that within the next month he can be anticoagulated and we can take the filter out at that p oint.
[2017-04-22] MEDS: Sodium Chloride 0.9% 1,000 ML IV SCH ×2 (00:03→09:23)
[2017-04-22] MEDS: traMADol HCl 50 MG TAB PO SCH ×4 (03:26→21:53)
[2017-04-22] MEDS: Acetaminophen 500 MG TAB PO SCH ×4 (04:38→21:54)
[2017-04-22] MEDS: Docusate 100 MG CAP PO SCH ×2 (07:49→14:18)
[2017-04-22] MEDS: Senokot 8.6 MG TAB PO SCH ×2 (07:50→14:18)
[2017-04-22] MEDS: Famotidine 20 MG TAB PO SCH ×2 (07:50→21:54)
[2017-04-22] MEDS ORDERED: Iopamidol 370 76% 50 ML VIAL FS ONE (07:55)
--- NOTE | 2017-04-22 07:59 | PRG ---
DATE OF SERVICE: 04/22/2017 I am seeing Mr. Rollins in his hospital room this morning. His bandage is dry and intact. He is bein g bathed as I entered the room and the brace is open and there are some red areas where the brace is pressing on the iliac crest. His neurological function is the same, his sensation in L3 perhaps a bi t of sensation in L4 on the left. There is sensation on L3 on the right. Hip flexors and quadriceps fire on the left, there is minimal motion with gravity eliminated. On the right there is no motion, but there is some muscle twitching. Mr. Crum neurological examination is stable. I am going to leave the drain in and continue antibio tics to manage any CSF leak within the thoracic wound and give his muscles and skin a chance to close before removing it. Mr. Crum needs the brace off when he is sleeping at night. His head of bed can be up about 15-20 d egrees with a brace off which will help him breathe and which will prevent bed sores. When he is sit ting and standing with assistance then he needs the brace on and this will be the case for the next 2 -3 months. Mr. Crum needs aggressive physical therapy and placement to learn how to use a wheelchair and to ge t therapy he needs to attempt to regain motion in the lower extremities.
[2017-04-22] MEDS ORDERED: Lidocaine 1% (PF) 30 ML VIAL ONE (11:18)
--- NOTE | 2017-04-22 12:26 | PRG ---
DATE OF SERVICE: 04/22/2017 SUBJECTIVE: Mr. Crum is awake and alert. [place] coma scale has remained at 15. He is postoperat brenda day #3 status post 4 level thoracolumbar spinal fusion. He remains functionally paraplegic. He is sitting up in bed with TLSO brace in place. He has poor cough effort, although he reports adequat e pain control. He uses incentive spirometer achieving almost 1000 mL. He denies any dyspnea, chest pain or syncope. He is passing flatus, but has not had a bowel movement. Urinary output has been a dequate. OBJECTIVE: VITAL SIGNS: This morning includes blood pressure 126/74, pulse 70, respiratory rate is 20, temperat ure is 97.9 degrees Fahrenheit, oxygen saturation is 96% on 2.5 liters by nasal cannula oxygen. HEENT: Examination reveals normocephalic and atraumatic. HEART: Reveals regular rate and rhythm. No murmurs or gallops auscultated. LUNGS: Clear to auscultation bilaterally. Breathing regular and unlabored. ABDOMEN: Soft, nontender and nondistended. Bowel sounds in all four quadrants appear normoactive. EXTREMITIES: Reveals 2+ radial and pedal pulses bilaterally. No ankle edema is present. MUSCULOSKELETAL: Examination reveals 5/5 muscle strength in bilateral upper extremities. Range of m otion about lower extremities is restricted as patient is functionally paraplegic. LABORATORY DATA: Laboratory findings today include fingerstick glucose, which ranges between 151 and 203. IMPRESSION: 1. Postoperative day #3 status post 4 level thoracolumbar spinal fusion for T12 and L1 burst fractur es. 2. The patient has remained hemodynamically stable. 3. T12 paraplegia. PLAN: 1. Continue with physical and occupational therapy. 2. The patient will undergo an IVC filter placement today due to relative contraindication for chemi poncho VTE prophylaxis. 3. He is indeed a high risk for VTE. 4. The patient has been evaluated by PM&R for possible inpatient rehabilitation.
--- NOTE | 2017-04-22 12:34 | OP ---
DATE OF PROCEDURE: 04/22/2017 PREOPERATIVE DIAGNOSIS: Status post fall with paralysis and contraindication to anticoagulation due to recent spine surgery. POSTOPERATIVE DIAGNOSIS: Status post fall with paralysis and contraindication to anticoagulation due to recent spine surgery. PROCEDURES: 1. Inferior vena cavogram. 2. Inferior vena cava filter placement - Optease with caudad facing hook SURGEON: Yoni Choi M.D. ANESTHESIA: 1% lidocaine for local. TOTAL CONTRAST: 16 mL. TOTAL FLUOROSCOPY TIME: 0.5 minutes. PROCEDURE IN DETAIL: After consent was obtained, the patient was brought to the Collections Associate, placed in supine position on the central lab technician table. Appropriate monitoring was placed. Her groins were prepped and draped in usual sterile fashion. Using ultrasound guidance, the right common femoral vein was accessed a micropuncture sheath placed. This was exchanged for the cavogram sheath. Hand injected vena cavogram was performed. Vena cava measured less than 3cm. The patient only has a left kidney. The left renal vein was noted to enter the inferior vena cava at the L1-L2 junction. Tip of the sheath was then positioned at the L1-L2 junction. An Optease filter was positioned with its hook facing caudad. The filter was deployed and seated nicely. Sheath was removed and manual pressure held for hemostasis. The patient tolerated the procedure well, and was transferred back to his room in stable condition. JEANETTE
[2017-04-22] MEDS: Insulin Regular 300 UNITS/3 ML VIAL SC PRN (17:33)
--- NOTE | 2017-04-23 03:24 | PRG ---
DATE OF SERVICE: 04/22/2017 SUBJECTIVE: This is a 57-year-old gentleman status post fall from a cement truck. He is postop day #3, status post spinal fusion and is functionally paraplegic. The patient is working with physical t herapy. Plan on disposition pending workman's comp. Earlier today, he was found to have multiple bl isters on his buttock for which Wound Care was ordered. Upon my evaluation, he vocalized no complain t. Earlier today, he received an IVC filter with Dr. Choi. OBJECTIVE: VITAL SIGNS: Reviewed and stable. GENERAL: The patient is resting in bed, in no acute distress. RESPIRATORY: Breathing is nonlabored. BACK: A TLSO brace is in place. Drain with mild serosanguineous drainage. ASSESSMENT AND PLAN: As documented in daily progress note. Continue care as ordered. Continue to m onitor. Await eventual and final disposition.
[2017-04-23] MEDS: traMADol HCl 50 MG TAB PO SCH ×4 (03:33→21:40)
[2017-04-23 05:18] VITALS: BMI 33.0
[2017-04-23] MEDS: Acetaminophen 500 MG TAB PO SCH ×4 (05:18→21:40)
[2017-04-23] MEDS: Insulin Regular 300 UNITS/3 ML VIAL SC PRN ×4 (06:45→21:42)
--- NOTE | 2017-04-23 07:32 | PRG ---
DATE OF SERVICE: 04/23/2017 Mr. Crum is postop day #4 from an open reduction internal fixation of T12 and L1 fractures with spi nal cord injury. Mr. Crum tells me that subjectively he thinks he has more sensation in his lower extremities than t here has been. He thinks the left leg remains stronger than the right. Mr. Crum still has a DEANNA dr perez in place, it is draining anywhere between 10 and 70 mL a day and we will leave it in place to all ow his muscles and skin to close over it before removal. There simply was no viable dura to sew clos ed and we are depending on the patches we left in place to seal. The recorded vitals are all stable. Mr. Crum examination is stable with respect to motor function and sensory function. He rafi escalera says that he has a bit of sensation in the great toe bilaterally and some extending into the L5 d ermatome on the left, L4 on the right. This might be a slight improvement. Mr. Crum will do well with inpatient physical therapy. This will give him the best chance for retu rning what function he can get in his lower extremities. At the same time, it is teaching him to use a wheelchair. He will need to use the brace while he is sitting or standing, but he can have it off in bed. We will leave the drain up to a total of 2 weeks to collect and control any CSF leak that o ccurs.
[2017-04-23] MEDS: Docusate 100 MG CAP PO SCH (08:35)
[2017-04-23] MEDS: Senokot 8.6 MG TAB PO SCH (08:35)
[2017-04-23] MEDS: Famotidine 20 MG TAB PO SCH ×2 (08:36→21:40)
[2017-04-23] MEDS ORDERED: Bisacodyl 10 MG SUPP PR SCH (15:00)
--- NOTE | 2017-04-23 15:10 | PRG ---
DATE OF SERVICE: 04/23/2017 SUBJECTIVE: Mr. Crum is a 57-year-old man, who is 4 days status post 4 level spinal fusion followi ng T12 and L1 burst fractures. Today, the patient is awake and alert with a [place] coma scale of 15 . He reports adequate pain control. He remains functionally paraplegic. He has better cough effort today. He is able to use his incentive spirometer achieving 1500 mL. He tolerated a general diet a nd has not had any bowel movement. Urinary output remains adequate. OBJECTIVE: VITAL SIGNS: Today includes blood pressure 130/73, pulse is 82, respiratory rate is 14, temperature is 98.5 degrees Fahrenheit, and oxygen saturation is 96% on room air. HEENT: Reveals normocephalic and atraumatic. HEART: Reveals regular rate and rhythm, no murmurs or gallops auscultated. CHEST: Clear to auscultation bilaterally. Breathing is regular and unlabored. ABDOMEN: Soft, nontender, and nondistended. Bowel sounds in all four quadrants appear normoactive. IMPRESSION: 1. Postoperative day #4 status post 4 level spinal fusion. 2. T12 and L1 burst fractures with paraplegia. 3. Hyperglycemia. PLAN: 1. Continue with physical and occupational therapy. 2. Encourage pulmonary toilet. 3. The patient has been evaluated by PMNR for possible inpatient rehabilitation. 4. The patient is otherwise hemodynamically stable today.
[2017-04-24] MEDS: traMADol HCl 50 MG TAB PO SCH ×4 (03:49→20:24)
[2017-04-24] MEDS: Acetaminophen 500 MG TAB PO SCH ×4 (03:50→22:13)
--- NOTE | 2017-04-24 07:50 | PRG ---
DATE OF SERVICE: 04/24/2017 Mr. Crmu is 5 days out from open reduction internal fixation of T12 and L1 fractures with spinal co rd injury. He has done relatively well during his hospitalization. His drain is still in place and we are continuing antibiotic therapy. On examination, he now has antigravity strength in the hip flexors and much better strength in hip in ternal rotation. His quadriceps fire, but they are not moving the knee against gravity yet. On the right side I see some muscle contraction, but a little motion, sensation continues to improve with se nsation all the way down to L4 perhaps some of L5 on the left and L3 to L4 on the right. Nursing staff is concerned of small blistering on the skin in various locations including the [place] a dhesive and some of the pressure points of the brace. We will simply need to use more padding. Thes e blistering areas do not need any special attention as they are all covered. The real issue is getting Mr. Crum into inpatient rehabilitation. He can begin using a wheelchair and transfers, he can learn bowel and bladder control with bowel and bladder regimen while he is unde rgoing intensive therapy there to try to regain as much neurological function as possible. He can tr ansfer to inpatient rehabilitation at any time. I will leave the drain in for 2 weeks and continue o n IV antibiotic therapy until the drain comes out and then give him one more dose and then stop that medicine.
[2017-04-24] MEDS: Insulin Regular 300 UNITS/3 ML VIAL SC PRN ×3 (07:59→22:13)
[2017-04-24] MEDS: Senokot 8.6 MG TAB PO SCH (08:55)
[2017-04-24] MEDS: Docusate 100 MG CAP PO SCH (08:55)
[2017-04-24] MEDS: Bisacodyl 10 MG SUPP PR SCH (08:57)
[2017-04-24] MEDS: Famotidine 20 MG TAB PO SCH ×2 (08:57→20:24)
--- NOTE | 2017-04-24 14:16 | PRG ---
DATE OF SERVICE: 04/24/2017 ATTENDING PHYSICIAN: Dr. Thad Stearns. SUBJECTIVE: Mr. Crum is a 57-year-old male, who recently had a fall from approximately 15 to 20 fe et, and suffered T12 and L1 burst fractures with near complete spinal cord injury. He is now postop day #5 status post decompressive laminectomy and ORIF of a T12 and L1. The patient has had an IVC fi lter placed as well. On 04/22/2017, the patient does report that his pain control is adequate. He h as been using his incentive spirometer frequently. He is also tolerating a general diet; however, he has not had a bowel movement. OBJECTIVE: VITAL SIGNS: BP 132/80, pulse 73, temperature 98.3, respirations 20, O2 sat 96% on 2 liters nasal ca nnula. GENERAL APPEARANCE: Middle-aged adult male lying comfortably in bed in no acute distress. HEENT: Normocephalic, atraumatic. RESPIRATORY: His lungs are clear to auscultation bilaterally with normal effort. CARDIOVASCULAR: He has a regular rate and rhythm. No murmurs, gallops, or rubs. Normal S1 and S2. ABDOMEN: Soft, nontender, nondistended. He has normal bowel sounds. EXTREMITIES: Patient does not have a sensation below the knee approximately bilaterally in his lower extremities. He remains without significant motor function in his lower extremities as well. Neuro vascularly his upper extremities are intact bilaterally. NEUROLOGIC: His GCS is 15. He is alert and oriented x3. LABORATORY DATA: His glucose remains elevated at 273 this morning. RADIOGRAPHIC FINDINGS: There are no radiographs review. ASSESSMENT AND PLAN: 1. Status post fall from height with paralysis. 2. T12 and L1 burst fractures with paraplegia. 3. Postop day #5, status post a 4-level fusion and decompressive laminectomy. 4. Hyperglycemia. PLAN: 1. Continue PT and OT as ordered. 2. Continue to encourage incentive spirometry. 3. Case management is following for assistance with discharge planning to rehabilitation. This patient was seen and examined along with Dr. Thad Stearns on rounds, who agrees with the assess ment and plan.
[2017-04-25] MEDS: traMADol HCl 50 MG TAB PO SCH ×4 (03:58→20:46)
[2017-04-25] MEDS: Acetaminophen 500 MG TAB PO SCH ×4 (04:00→23:23)
[2017-04-25 05:55] LABS: #Eosinphils 0.3 thou/uL (0.0-0.7); #Lymphocytes 1.5 thou/uL (1.20-3.40); #Monocytes 0.3 thou/uL (0.11-0.59); #Neutrophils 4.7 thou/uL (1.40-6.50); %Basophils 0.3 % (0.0-1.0); %Eosinophils 4.9 % (0.0-10.0); %Monocytes 4.9 % (0.0-10.0); Hemoglobin 10.2 g/dL (14.0-18.0); Mean Corpuscular HGB CONC 33.5 g/dL (32.0-36.0); Mean Corpuscular Hemoglobin 30.2 pg (27.0-31.0); Mean Corpuscular Volume 90.2 fl (80.0-94.0); Mean Platelet Volume 8.7 fL (7.4-10.4); Platelet Count 113 thou/uL (130-400); RBC Distribution Width 14.2 % (11.5-14.5); Red Blood Cell (RBC) Count 3.36 mill/uL (4.70-6.10)
[2017-04-25] MEDS: Insulin Regular 300 UNITS/3 ML VIAL SC PRN ×4 (06:17→20:48)
--- NOTE | 2017-04-25 07:18 | PRG ---
DATE OF SERVICE: 04/25/2017 Mr. Crum is 6 days out from open reduction internal fixation of T12 and L1 burst fractures with spi nal cord injury. Yesterday Mr. Crum's hip flexors were antigravity and moved against very minimal resistance. This was an improvement over his prior examinations. I am seeing him this morning and he was encouraged a bout the improvement in his muscle strength. I do not see any fevers recorded on his vital signs, hi s drain is putting out between 10 and 50 mL a day and it continues to be drained every 2 hours. On examination, Mr. Crum does have antigravity strength in hip flexors on the left side. The hip i nternally rotates well against gravity. The quadriceps are not antigravity yet, but there are contra cting. On the right side it is harder to see any visible contractions, although the iliopsoas seems to be chava and the quadriceps has tiny fasciculations and attempts at firing. He does have se nsation including light touch into L4-5 on the left L3-4 on the right and deep pressure and joint pos ition sense perhaps to the ankle. I encouraged with Mr. Crum's modest progress, he will need aggressive physical therapy and transfer to inpatient rehabilitation at any time would be appropriate. We are going to leave the drain in fo r 1 more week and continue antibiotics during that time.
[2017-04-25] MEDS ORDERED: Magnesium Citrate 300 ML BOT PO SCH (07:45)
[2017-04-25] MEDS: Famotidine 20 MG TAB PO SCH ×2 (08:29→20:46)
[2017-04-25] MEDS: Docusate 100 MG CAP PO SCH (14:05)
[2017-04-25] MEDS: Bisacodyl 10 MG SUPP PR SCH (14:05)
[2017-04-25] MEDS: Senokot 8.6 MG TAB PO SCH (14:05)
--- NOTE | 2017-04-25 17:20 | PRG ---
DATE OF SERVICE: 04/25/2017 ATTENDING PHYSICIAN: Dr. Thad Stearns. SUBJECTIVE: Mr. Crum is a 57-year-old male with a recent fall from approximately 20 feet who suffered a T12 and L1 burst fractures with near complete spinal cord injury. He is now postop day #6 status post decompressive laminectomy and ORIF of T12 and L1. The patient has an IVC filter placed as well. Currently, the patient reporting that his pain control is adequate. He is using his incentive spirometer frequently. He voices no complaints on exam this morning. OBJECTIVE: VITAL SIGNS: BP 147/81, pulse 70, temperature 98.1, respirations 18, O2 sat 95 % on 1 liter nasal cannula. GENERAL: A middle-aged adult male, lying comfortably in bed, in no acute distress. HEENT: He is normocephalic and atraumatic. RESPIRATORY: Clear to auscultation bilaterally with normal effort. CARDIOVASCULAR: Regular rate and rhythm. Normal S1 and S2. ABDOMEN: Soft, nontender, nondistended. He has normal bowel sounds. EXTREMITIES: The patient remains insensate below the knee bilaterally. He also has no significant motor function in his lower extremities. Neurovascularly, his upper extremities are intact bilaterally. NEUROLOGIC: His GCS is 15. He is alert and oriented x3. LABORATORY DATA: Hematology: WBC 7.0, hemoglobin 10.2, hematocrit 30.3, platelets 113. Chemistry: Glucose remains elevated at 195. RADIOGRAPHIC FINDINGS: There are no radiographs reviewed today. ASSESSMENT: 1. Status post fall from height approximately 20 feet. 2. T12 and L1 burst fractures with paraplegia. 3. Postoperative day #6 status post 4-level fusion and decompressive laminectomy. 4. Hyperglycemia. PLAN: 1. Continue PT and OT is ordered. 2. Continue incentive spirometry. 3. Case management following for assistance with discharge planning to rehabilitation. The patient is a worker's compensation case, so currently awaiting approval from worker's compensation. Currently, the patient has a DEANNA drain in place in the area of his surgery. The patient may be able to discharge before the drain is out if Neurosurgery agrees. This patient was seen and examined along with Dr. Thad Stearns on rounds, agrees with the assessment and plan. JEANETTE
[2017-04-26] MEDS: Acetaminophen 500 MG TAB PO SCH ×3 (03:30→16:50)
[2017-04-26] MEDS: traMADol HCl 50 MG TAB PO SCH ×3 (03:30→16:50)
[2017-04-26] MEDS: Insulin Regular 300 UNITS/3 ML VIAL SC PRN (06:20)
--- NOTE | 2017-04-26 07:03 | PRG ---
DATE OF SERVICE: 04/26/2017 Mr. Crum is 1 week out from open reduction internal fixation of T12 and L1 burst fracture with spin al cord injury. Mr. Crum has made some progress in the antigravity strength of his hip flexors on the left. The re corded vital signs show that he has been afebrile overnight. His neurological examination is stable from yesterday. Mr. Crum would benefit from inpatient rehabilitation and should be transferred as soon as possible.
[2017-04-26] MEDS: Docusate 100 MG CAP PO SCH (07:55)
[2017-04-26] MEDS: Senokot 8.6 MG TAB PO SCH (07:55)
[2017-04-26] MEDS: Famotidine 20 MG TAB PO SCH (07:56)
[2017-04-26] MEDS: Bisacodyl 10 MG SUPP PR SCH (07:56)
[2017-04-26] MEDS: CEFAZOLIN IVPB SCH ×2 (08:04→16:55)
[2017-04-26] MEDS: ADMIXTURE FEE IVPB SCH ×2 (08:04→16:55)
[2017-04-26] MEDS ORDERED: Bacitracin Zinc Ointment 30 gm TUBE ONE (14:31)
[2017-04-26] MEDS ORDERED: Bupivacaine 0.5% 10 ML VIAL ONE (14:31)
[2017-04-26] MEDS ORDERED: EPINEPHrine 1 MG/ML AMP ONE (14:31)
[2017-04-26 15:57] VITALS: BP 131/87; TEMP 98.4
[2017-04-26] MEDS ORDERED: Gemfibrozil 600 MG TAB PO SCH (16:30)
[2017-04-26] MEDS ORDERED: metFORMIN 500 MG TAB PO SCH (17:00)
[2017-04-26] MEDS ORDERED: glipiZIDE 10 MG TAB PO SCH (21:00)
--- NOTE | 2017-04-27 01:34 | DIS ---
DATE OF ADMISSION: 04/19/2017 DATE OF DISCHARGE: 04/26/2017 ADMITTING PHYSICIAN: Dr. Schwab. DISCHARGING PHYSICIAN: Dr. Thad Stearns. CHIEF COMPLAINT: Evaluation of back pain and lower extremity paralysis. 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 His initial presentation was severe pain in th e lower back as well as bilateral lower extremity paralysis and loss of sensation. Now workup in the ER revealed that he had a severe T12 and L1 burst fracture with near complete spinal cord injury. N eurosurgery was consulted and the patient went from the ER to the OR for a 4-level fixation of T12 an d L1. Postoperatively, he was returned to the surgical floor with a DEANNA drain in place. Now with ins tructions for that to be in place for 2 weeks. Because the patient could not receive chemical DVT pr ophylaxis. He had an IVC filter placed on 04/22/2017. Physical and occupational therapy were consul amarilis and the patient was determined to be a good candidate for [facility] neuro rehabilitation. The patient was discharged to rehab on 04/26/2017 with instructions to follow up with Dr. Farmer, neurosurger y for drain removal on 05/02/2017. The patient was in good condition at discharge. DISCHARGE MEDICATIONS: The patient was discharged with all of inpatient medications. Please see the electronic EMR for details. ACTIVITY INSTRUCTIONS: The patient was discharged with orthopedic limitations including bilateral lo wer extremity paralysis with weightbearing as tolerated during rehabilitation. NURSING INSTRUCTIONS: The patient was discharged on diabetic, 1800-kilocalorie per day diet with sup plemental Glucerna shakes. THERAPY INSTRUCTIONS: The patient to have occupational and physical therapy as well as wound care fo r treatment of pressure ulcers while in rehabilitation. FOLLOWUP INSTRUCTIONS: The patient instructed to follow up with his primary care physician within 7 days of discharge to rehabilitation. The patient also will need to return to Dr. Farmer for his d rain removal on 05/02/2017. This patient was seen along with Dr. Thad Stearns on rounds, who agrees with this discharge plan.
[2017-04-27] MEDS ORDERED: Pioglitazone HCl 45 MG TAB PO SCH (09:00)
== END 2017-04-26 18:28 | DRG 459 ==
LOC: ERS 11:39 → CCU 13:13 → SDC 13:31 → CCU 22:32 → SURG B 04-20 14:37
PROVIDERS: ADMIT Surgery; ATTEND Surgery
PROC: 0HQ0XZZ Repair Scalp Skin, External Approach (ICD-10-PCS; principal; 2017-04-19)
PROC: 0RGA0AJ Fusion of Thoracolumbar Vertebral Joint with Interbody Fusion Device, Posterior Approach, Anterior Column, Open Approach (ICD-10-PCS; 2017-04-19)
PROC: 00QT0ZZ Repair Spinal Meninges, Open Approach (ICD-10-PCS; 2017-04-19)
PROC: 01N80ZZ Release Thoracic Nerve, Open Approach (ICD-10-PCS; 2017-04-19)
PROC: 01NB0ZZ Release Lumbar Nerve, Open Approach (ICD-10-PCS; 2017-04-19)
PROC: 00UT0JZ Supplement Spinal Meninges with Synthetic Substitute, Open Approach (ICD-10-PCS; 2017-04-19)
PROC: 0W9L00Z Drainage of Lower Back with Drainage Device, Open Approach (ICD-10-PCS; 2017-04-19)
PROC: 30233N1 Transfusion of Nonautologous Red Blood Cells into Peripheral Vein, Percutaneous Approach (ICD-10-PCS; 2017-04-19)
PROC: 06H03DZ Insertion of Intraluminal Device into Inferior Vena Cava, Percutaneous Approach (ICD-10-PCS; 2017-04-22)
PROC: B549ZZA Ultrasonography of Inferior Vena Cava, Guidance (ICD-10-PCS; 2017-04-22)
DX: S32.011A Stable burst fracture of first lumbar vertebra, initial encounter for closed fracture (principal); S24.154A Other incomplete lesion at T11-T12 level of thoracic spinal cord, initial encounter; S34.121 Incomplete lesion of L1 level of lumbar spinal cord; E11.65 Type 2 diabetes mellitus with hyperglycemia; S22.081A Stable burst fracture of T11-T12 vertebra, initial encounter for closed fracture; S42.101A Fracture of unspecified part of scapula, right shoulder, initial encounter for closed fracture; S01.01XA Laceration without foreign body of scalp, initial encounter; M48.05 Spinal stenosis, thoracolumbar region; W17.89XA Other fall from one level to another, initial encounter; Y93.H3 Activity, building and construction; Y99.0 Civilian activity done for income or pay; I10 Essential (primary) hypertension; E78.5 Hyperlipidemia, unspecified; G89.11 Acute pain due to trauma; Z23 Encounter for immunization
CPT/HCPCS: 12002; 36415; 36416; 36430; 37191; 51702; 70450; 71260; 72125; 74177; 75825; 76001; 76942; 80048; 80053; 83690; 83735; 84100; 85025; 85610; 85730; 86850; 86900; 86901; 90471; 90715; 93005; 94640; 94760; 99292; A4216; C1713; C1768; C1769; G0390; G8978-GP-CM; G8979-GP-CK; G8987-GO-CL; G8988-GO-CJ; J0131; J0171; J0690; J1170; J1644; J1815; J2001; J2370; J2405; J2704; J2765; J3010; J3370; J3490; J7620; L0639; P9016; P9045; S0028